=== PATIENT | male | born 1965 | race Caucasian/White ===

== ENCOUNTER 2017-09-28 12:32 | Emergency (ER) | payer OTHER ==
[2017-09-28] MEDS ORDERED: TDAP Vaccine 0.5 mL Syr IM ONE (13:05)
--- NOTE | 2017-09-28 13:05 | ED PDOC ---
Arrival/HPI - General Chief Complaint: Abnormal Skin Integrity Time Seen by Provider: 09/28/17 13:04 Historian: Patient - History of Present Illness Narrative History of Present Illness (Text): 09/28/17 13:05 t Past Medical History - Psychiatric Hx Psychophysiologic Disorder: No Hx Substance Use: No Family/Social History Smoking Status: Never Smoked Hx Alcohol Use: Yes Frequency of alcohol use: Socially Hx Substance Use: No Allergies/Home Meds Allergies/Adverse Reactions: Allergies No Known Allergies Allergy (Verified 09/28/17 12:35) Physical Exam Vital Signs Temp Pulse Resp BP Pulse Ox 09/28/17 12:36 98.4 F 66 16 114/78 95 Medical Decision Making ED Course and Treatment: 09/28/17 13:55 Re-evaluation. Patient feels better. Discussed results and plan with patient who expresses understanding. All questions answered and there is agreement with the plan to discharge home with instructions. Patient stable for discharge. Return if symptoms persist or worsen. - Medication Orders Current Medication Orders: Discontinued Medications Cephalexin Monohydrate (Keflex) 500 mg PO STAT STA PRN Reason: Protocol Stop: 09/28/17 13:06 Tetanus/Reduced Diphtheria/Acell Pertussis (Boostrix Vaccine Inj) 0.5 ml IM .ONCE ONE Stop: 09/28/17 13:06 - Procedure PROCEDURE NOTE (Text): 09/28/17 13:56 PROCEDURE: LACERATION REPAIR Performed by the emergency provider Location: left hand, finger web (between 1st and 2nd finger) Length: 2.7 cm, irregular Description: clean wound edges, no foreign bodies Distal CMS: Normal. No deficits. Neurovascularly intact. Anesthesia: Lidocaine 1% with Epi Preparation: The wound was cleaned with NS and Bet[place]. The area was prepped and draped in the usual sterile fashion. Exploration: The wound was explored and no foreign bodies were found. Procedure: The fascia was closed with Vicryl 6-0, interrupted, 2 sutures. The external wound was closed with Monocryl, 4-0, interrupted, 5 sutures. There was good approximation. In total, 7 sutures were used. Post-Procedure: Good closure and hemostasis. The patient tolerated the procedure well and there were no complications. CSM remains intact. Post procedure dressing applied. Disposition/Present on Arrival - Present on Arrival Any Indicators Present on Arrival: No History of DVT/PE: No History of Uncontrolled Diabetes: No Urinary Catheter: No History of Decub. Ulcer: No History Surgical Site Infection Following: None - Disposition Have Diagnosis and Disposition been Completed?: Yes Diagnosis: Puncture wound, hand Disposition: HOME/ ROUTINE Disposition Time: 14:00 Patient Plan: Discharge Patient Problems: Current Active Problems Problem Status Onset Puncture wound, hand Acute Condition: GOOD Additional Instructions: Call private doctor for follow up visit and wound check in 2 days. Call hand doctor as instructed. Take medication as instructed. return to emergency if wound becomes infected, worsening of pain. Keep wound clean and dry for 2 days , then clean wound daily with soap and water. Prescriptions: Cephalexin [cephalexin] 500 mg PO QID #28 cap Ibuprofen [Motrin] 600 mg PO Q8 PRN #20 tab PRN Reason: Pain, Severe (8-10) Referrals: River Montalvo MD [Staff Provider] - Follow up with primary Forms: [facility] ([place]), WORK NOTE
[2017-09-28 14:25] VITALS: BP 124/78; PULSE 75; RESP 18; TEMP 98.6; O2SAT 100
== END 2017-09-28 14:24 | disposition home or self-care (01) ==
LOC: ED 12:32
DX: S61.432A Puncture wound without foreign body of left hand, initial encounter (principal); X58.XXXA Exposure to other specified factors, initial encounter; Z23 Encounter for immunization